=== PATIENT | male | born 1975 | race Caucasian/White ===

== ENCOUNTER 2017-02-11 17:47 | Emergency (ER) | payer OTHER ==
[2017-02-11] MEDS ORDERED: KETOROLAC TROMETHAMINE 60 MG/2 ML VIAL IM ONE ×2 (18:16→18:25)
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
--- OUTSIDE RECORDS SUMMARY | 2017-02-11 18:24 | XMS REPORT | Clinical Summary ---
:1975 Author Organization [facility] [place] [address] Care Team Providers Name Role Phone Unavailable Primary Care Provider Unavailable Source Comments This disclosure is being made pursuant to the [employer] program and maynot contain all information available regarding this patient.[facility] Allergies Not on File Current Medications Be aware that medications may not be up to date as of this document. Alwaysverify current medications with the patient. Not on file Active Problems Not on file Social History Tobacco Use Types Packs/Day Years Used Date Never Assessed Sex Assigned at Date Recorded Not on file Last Filed Vital Signs Not on file Plan of Treatment Health Maintenance Due Date Last Done Comments Tetanus/Pertussis (1 - Tdap) 01/20/1996 INFLUENZA IMMUNIZATION (#1) 2016 Results Not on filefrom Last 3 Months
[2017-02-11 18:54] VITALS: BP 146/92
[2017-02-11 19:00] LABS: Urine Appearance Clear; Urine Bacteria None Seen; Urine Bilirubin Negative (NEGATIVE); Urine Blood 25 /ul (NEGATIVE); Urine Color Yellow; Urine Ketone Negative (NEGATIVE); Urine Nitrite Negative (NEGATIVE); Urine Protein Negative (NEGATIVE); Urine RBC 0-5 /hpf (0-5); Urine Specific Gravity 1.025 SP.GR. (1.005-1.030); Urine Urobilinogen Normal (NORMAL); Urine WBC 0-5 /hpf (0-5)
[2017-02-11 19:04] LABS: Cocaine Ur Negative (NEGATIVE); Urine Barbiturate Negative (NEGATIVE); Urine Benzodiazepines Negative (NEGATIVE); Urine PCP Negative (NEGATIVE)
[2017-02-11 19:06] LABS: Urine Opiates Positive (NEGATIVE); Urine THC Positive (NEGATIVE)
== END 2017-02-11 19:16 | disposition home or self-care (01) ==
LOC: ER 17:47
DX: F15.129 Other stimulant abuse with intoxication, unspecified (principal); F11.129 Opioid abuse with intoxication, unspecified; F12.129 Cannabis abuse with intoxication, unspecified; V89.0XXD Person injured in unspecified motor-vehicle accident, nontraffic, subsequent encounter; W22.11XD Striking against or struck by driver side automobile airbag, subsequent encounter